=== PATIENT | female | born 1970 | race Caucasian/White ===

== ENCOUNTER 2018-11-16 18:20 | Emergency (ER) | payer BC ==
[2018-11-16 18:23] VITALS: BMI 18.8
[2018-11-16 18:26] VITALS: BP 132/86; PULSE 84; TEMP 98.3
[2018-11-16] MEDS ORDERED: IBUPROFEN 600 MG TABLET (FP) PO ONE ×2 (18:34→18:42)
[2018-11-16] MEDS ORDERED: DIPHTH,PERTUSS(ACELL),TET 0.5 ML DISP.SYRIN IM ONE ×2 (18:42→19:15)
--- NOTE | 2018-11-16 20:37 | PDOC ---
Documentation entered by Yamileth Terrazas SCRIBE, acting as scribe for Kunal Berkowitz MD. Kunal Berkowitz MD: This documentation has been prepared by the Mk edwards Xhesika, SCRIBE, under my direction and personally reviewed by me in its entirety. I confirm that the documentation accurately reflects all work, treatment, procedures, and medical decision making performed by me. History of Present Illness - General Chief Complaint: Laceration Stated Complaint: CUT MY FINGER History Source: Patient Exam Limitations: No Limitations - History of Present Illness Initial Comments: 11/16/18 19:15 The patient is a 48 year old female, with no significant past medical history of who presents to the emergency department with a laceration prior to her arrival to the ED. The patient states she is moving, heard the moving truck was ready to leave so she ran outside and the door on the moving truck slammed on her right middle finger. The patient denies taking anything for pain, however, she has been holding up her finger. The patients tetanus was not up to date. The patient denies chest pain, shortness of breath, headache or dizziness. The patient denies fever, chills, nausea, vomit, diarrhea or constipation. The patient denies dysuria, frequency, urgency or hematuria. PAST MEDICAL HISTORY: no significant history PAST SURGICAL HISTORY: no significant history FAMILY HISTORY: no pertinent history SOCIAL HISTORY: Pt lives with family and is employed. MEDICATIONS: reviewed ALLERGIES: As per nursing notes 11/16/18 20:54 Assessment and plan: This is a 48-year-old female who comes in complaining of a laceration to the tip of her right middle finger. Patient smashed it in a moving truck slighter door. Patient was given a tetanus here in the ED. Laceration was repaired and x-ray was obtained. X-ray read by me as no acute fracture dislocation Procedure note laceration repair Finger was anesthetized via digital block approximately 3 mL of lidocaine no epinephrine Laceration was thoroughly cleaned with some peroxide Laceration was closed with a total of 5 sutures of 4-0 Ethilon Fingernail was trimmed back as there was several small tears in the tip of the fingernail Bacitracin and sterile dressing were applied patient tolerated well Past History - Past Medical History Allergies/Adverse Reactions: Allergies Allergy/AdvReac Type Severity Reaction Status Date / Time Sulfa (Sulfonamide Allergy Verified 11/16/18 18:21 Antibiotics) Home Medications: Ambulatory Orders NK [No Known Home Medication] 11/16/18 COPD: No - Suicide/Smoking/Psychosocial Hx Smoking History: Never smoked Hx Alcohol Use: Yes (TWICE A YEAR) Drug/Substance Use Hx: No Review of Systems - Review of Systems Able to Perform ROS?: Yes Comments:: 11/16/18 19:16 General: No fevers or chills, no weakness, no weight loss HEENT: No change in vision. No sore throat,. No ear pain CardioVascular: No chest pain or shortness of breath Respiratory:No cough, or wheezing. Gastrointestinal: no nausea, vomiting, diarrhea or constipation, No rectal bleeding Genitourinary: No dysuria, hematuria, or frequency Musculoskeletal: (+) R middle finger laceration. No joint or muscle pain or swelling Neurologic: No headache, vertigo, dizziness or loss of consciousness Psychiatric: nor depression Skin: No rashes or easy bruising Endocrine: no increased thirst or abnormal weight change Allergic: no skin or latex allergy All other systems reviewed and normal *Physical Exam - Vital Signs Last Vital Signs Temp Pulse Resp BP Pulse Ox 98.3 F 84 16 132/86 100 11/16/18 18:21 11/16/18 18:21 11/16/18 18:21 11/16/18 18:21 11/16/18 18:21 - Physical Exam Comments: 11/16/18 19:16 GENERAL: The patient is awake, alert, and fully oriented, in no acute distress. HEAD: Normal with no signs of trauma. EYES: Pupils equal, round and reactive to light, extraocular movements intact, sclera anicteric, conjunctiva clear. EXTREMITIES: Normal range of motion, no edema. NEUROLOGICAL: Normal speech, normal gait. PSYCH: Normal mood, normal affect. SKIN: (+) 1cm flap-like laceration of tip of finger with smaller laceration at base of flap approximately 3mm. (+) small laceration extends just underneath fingernail. Warm, Dry, normal turgor, no rashes or lesions noted. ED Treatment Course - Medications Given in the ED: ED Medications Discontinued Medications Generic Name Dose Route Start Last Admin Trade Name Freq PRN Reason Stop Dose Admin Ibuprofen 600 mg 11/16/18 18:34 11/16/18 18:54 Motrin - PO 11/16/18 18:35 600 mg ONCE ONE Administration *DC/Admit/Observation/Transfer Diagnosis at time of Disposition: Laceration of right middle finger Qualifiers: Encounter type: initial encounter Damage to nail status: without damage Foreign body presence: without foreign body Qualified Code(s): S61.212A - Laceration without foreign body of right middle finger without damage to nail, initial encounter - Discharge Dispostion Disposition: HOME Condition at time of disposition: Stable Decision to Admit order: No - Referrals - Patient Instructions Printed Discharge Instructions: DI for Laceration Repair Additional Instructions: Change the dressing tomorrow morning clean with a little peroxide and place some bacitracin on the laceration and replaced the dressing. Keep it covered and clean for the next 2-3 days, after that you can leave it open in less you are doing something that causes this sutures to get caught or it is a dirty environment. Suture removal in 8 days. Return to the emergency department immediately with ANY new, persistent or worsening symptoms. Continue any medications as previously prescribed by your physician. You should follow up with your primary doctor as soon as possible regarding today's emergency department visit. . Please make sure your doctor reviews the results of your emergency evaluation. Thank you for coming to the Emergency Department today for your care. It was a pleasure to see you today. Please note that your evaluation is INCOMPLETE until you follow-up with your doctor. - Post Discharge Activity
== END 2018-11-16 20:40 | disposition home or self-care (01) ==
LOC: FER 18:20
PROC: 0HQFXZZ Repair Right Hand Skin, External Approach (ICD-10-PCS; principal; 2018-11-16)
PROC: 3E0234Z Introduction of Serum, Toxoid and Vaccine into Muscle, Percutaneous Approach (ICD-10-PCS; 2018-11-16)
DX: S61.212A Laceration without foreign body of right middle finger without damage to nail, initial encounter (principal); W45.8XXA Other foreign body or object entering through skin, initial encounter; Y93.89 Activity, other specified; Y92.89 Other specified places as the place of occurrence of the external cause
CPT/HCPCS: 73140-TC-RT-FY; 90715; 99281-25